=== PATIENT | female | born 1980 | race Caucasian/White ===

== ENCOUNTER 2017-03-03 13:43 | Outpatient (CLI) | payer OTHER ==
--- NOTE | 2017-03-03 14:13 | RAD ---
RADIOGRAPH CHEST 2 VIEWS: HISTORY: A 36-year-old female with disability. FINDINGS: The lungs are clear. The cardiomediastinal silhouette and hilar shadows are normal. There is no pl eural effusion. The osseous structures appear normal. There is no pneumothorax. IMPRESSION: Normal. jn [] POS: [facility]
--- NOTE | 2017-03-03 14:17 | RAD ---
LUMBAR SPINE 3 VIEWS: Date: 03/03/17 HISTORY: Disability evaluation, back pain. FINDINGS: There are mild degenerative changes, most prominent at L2-3 level. No fracture, subluxation, or bony destruction is seen. IMPRESSION: Lumbar spondylosis. POS: [facility]
== END 2017-03-03 13:44 | disposition home or self-care (01) ==
LOC: NAV RAD 13:43
PROVIDERS: ATTEND Family Medicine
DX: Z02.71 Encounter for disability determination (principal); M47.816 Spondylosis without myelopathy or radiculopathy, lumbar region
CPT/HCPCS: 71020; 72100

== ENCOUNTER 2017-09-25 22:39 | Emergency (ER) | payer OTHER ==
[2017-09-25] MEDS ORDERED: Ketorolac Tromethamine 30 MG/ML VIAL ONE (23:21)
[2017-09-25] MEDS ORDERED: Ondansetron ODT 4 MG TAB ONE (23:21)
[2017-09-25] MEDS ORDERED: HYDROcodone/Acetaminophen 10/325 mg Tablet ONE (23:22)
== END 2017-09-25 23:50 | disposition home or self-care (01) ==
LOC: NAV ERS 22:39
DX: S90.31XA Contusion of right foot, initial encounter (principal); I10 Essential (primary) hypertension; J45.909 Unspecified asthma, uncomplicated; E66.01 Morbid (severe) obesity due to excess calories; M19.90 Unspecified osteoarthritis, unspecified site; F41.9 Anxiety disorder, unspecified; F32.9 Major depressive disorder, single episode, unspecified; Z79.899 Other long term (current) drug therapy; V49.9XXA Car occupant (driver) (passenger) injured in unspecified traffic accident, initial encounter
CPT/HCPCS: 96372; J1885; Q0162

== ENCOUNTER 2018-07-06 01:41 | Emergency (ER) | payer OTHER ==
[2018-07-06 02:11] LABS: Bilirubin Moderate (Negative); Blood, Urine Large (Negative); Clarity Cloudy (Clear); Glucose, Urine (Dipstick) Negative (Negative); Leukocyte Trace (Negative); Nitrite Negative (Negative); Protein, Urine (Dipstick) 30 mg/dL (Neg-Trace); Specific Gravity, Urine 1.025 (1.005-1.030); Urobilinogen 0.2 mg/dL (0.2-1.0)
[2018-07-06 02:17] LABS: Bacteria/HPF 2+ HPF (None Seen); RBC/HPF 21-50 HPF (0-3)
[2018-07-06] MEDS ORDERED: Ondansetron ODT 4 MG TAB ONE (02:32)
[2018-07-06] MEDS ORDERED: Morphine 4 MG/ML VIAL ONE (02:32)
--- NOTE | 2018-07-06 07:58 | RAD ---
CHEST 1 VIEW AND ABDOMEN 2 VIEWS: HISTORY: Abdominal pain, gastric bypass 3 days ago. FINDINGS/IMPRESSION: The heart size is normal. The lungs are clear. No free air is seen. There is air in loops of small and large bowel. POS: [facility]
== END 2018-07-06 02:45 | disposition home or self-care (01) ==
LOC: NAV ERS 01:41
DX: G89.18 Other acute postprocedural pain (principal); R11.2 Nausea with vomiting, unspecified; I10 Essential (primary) hypertension
CPT/HCPCS: 74022; 81003; 81015; 87077; 87086; 96372; J2270; Q0162

== ENCOUNTER 2019-05-18 17:56 | Emergency (ER) | payer OTHER ==
[2019-05-18] MEDS ORDERED: Naproxen 500 MG TAB ONE (18:25)
== END 2019-05-18 18:30 | disposition home or self-care (01) ==
LOC: NAV ERS 17:56
DX: M54.5 Low back pain (principal); F32.9 Major depressive disorder, single episode, unspecified; F41.9 Anxiety disorder, unspecified; I10 Essential (primary) hypertension; J45.909 Unspecified asthma, uncomplicated; E66.01 Morbid (severe) obesity due to excess calories; M19.90 Unspecified osteoarthritis, unspecified site
CPT/HCPCS: 99283

== ENCOUNTER 2019-08-13 14:05 | Outpatient (CLI) | payer OTHER ==
--- NOTE | 2019-08-13 16:06 | ULT ---
PELVIC ULTRASOUND: INDICATIONS: PCOS (polycystic ovarian syndrome). TECHNIQUE: Transabdominal and endovaginal ultrasound of the pelvis performed. FINDINGS: The uterus has a normal size and appearance, measuring 6.7 x 4 x 3.3 cm. The endometrial stripe is normal, measured at 4 mm. Both ovaries have symmetric size, each measuring approximately 3 x 2 x 2.5 to 3 cm. Bilateral ovarian cysts are identified, measuring up to 1 cm. The ovarian cysts do not have a typical appearance of po lycystic ovarian syndrome. IMPRESSION: Unremarkable pelvic ultrasound. POS: [facility]
== END 2019-08-13 14:06 | disposition home or self-care (01) ==
LOC: NAV ULT 14:05
PROVIDERS: ATTEND Nurse Practitioner
DX: E28.2 Polycystic ovarian syndrome (principal)
CPT/HCPCS: 76856

== ENCOUNTER 2019-10-20 16:01 | Emergency (ER) | payer OTHER | END 2019-10-20 16:30 | disposition home or self-care (01) | LOC: NAV ERS 16:01 | DX: M54.5 Low back pain (principal); I10 Essential (primary) hypertension; J45.909 Unspecified asthma, uncomplicated; E66.01 Morbid (severe) obesity due to excess calories; F41.9 Anxiety disorder, unspecified; F32.9 Major depressive disorder, single episode, unspecified; Z79.899 Other long term (current) drug therapy | CPT/HCPCS: 99283 ==

== ENCOUNTER 2020-04-28 15:01 | Emergency (ER) | payer OTHER ==
--- NOTE | 2020-04-28 15:39 | RAD ---
RIGHT ANKLE 3 VIEWS: HISTORY: Injury, right ankle pain FINDINGS: Soft tissue swelling is present. The ankle mortise is maintained. No acute fracture or dislocation is identified.
--- NOTE | 2020-04-28 15:39 | RAD ---
Exam:Right tibia fibula 2 view HISTORY: Injury. Pain. COMPARISON: 09/20/2017 FINDINGS: Chronic changes involving the distal tibia. No acute fracture, cortical irregularity or per iosteal reaction. IMPRESSION: No acute fracture.
[2020-04-28] MEDS ORDERED: Ketorolac Tromethamine 30 MG/ML VIAL ONE (15:46)
[2020-04-28] MEDS ORDERED: Acetaminophen 500 MG TAB ONE (15:47)
== END 2020-04-28 16:02 | disposition home or self-care (01) ==
LOC: NAV ERS 15:01
DX: S93.401A Sprain of unspecified ligament of right ankle, initial encounter (principal); S90.31XA Contusion of right foot, initial encounter; F32.9 Major depressive disorder, single episode, unspecified; F41.9 Anxiety disorder, unspecified; I10 Essential (primary) hypertension; J45.909 Unspecified asthma, uncomplicated; M19.90 Unspecified osteoarthritis, unspecified site; W01.0XXA Fall on same level from slipping, tripping and stumbling without subsequent striking against object, initial encounter
CPT/HCPCS: 29515; 96372; J1885

== ENCOUNTER 2020-06-27 17:56 | Emergency (ER) | payer OTHER ==
[2020-06-27] MEDS ORDERED: Acetaminophen 500 MG TAB ONE (18:51)
[2020-06-27] MEDS ORDERED: Ketorolac Tromethamine 30 MG/ML VIAL ONE (18:51)
== END 2020-06-27 19:10 | disposition home or self-care (01) ==
LOC: NAV ERS 17:56
DX: M79.10 Myalgia, unspecified site (principal); M79.604 Pain in right leg; M19.90 Unspecified osteoarthritis, unspecified site; J45.909 Unspecified asthma, uncomplicated; F41.9 Anxiety disorder, unspecified; F32.9 Major depressive disorder, single episode, unspecified; Z79.899 Other long term (current) drug therapy
CPT/HCPCS: 96372; 99283; J1885

== ENCOUNTER 2020-09-18 17:13 | Emergency (ER) | payer OTHER ==
[2020-09-18] MEDS ORDERED: Acetaminophen 500 MG TAB ONE (18:03)
[2020-09-18 18:10] LABS: #Basophils 0.1 thou/uL (0.0-0.2); #Lymphocytes 1.8 thou/uL (1.20-3.40); #Monocytes 0.6 thou/uL (0.11-0.59); #Neutrophils 7.5 thou/uL (1.40-6.50); %Basophils 0.6 % (0.0-1.0); %Eosinophils 0.4 % (0.0-10.0); %Lymphocytes 18.2 % (21.0-51.0); %Monocytes 5.6 % (0.0-10.0); %Neutrophils 75.1 % (42.0-75.0); Hemoglobin 13.8 g/dL (12.0-16.0); Mean Corpuscular HGB CONC 32.9 g/dL (32.0-36.0); Mean Corpuscular Hemoglobin 28.4 pg (27.0-31.0); Mean Corpuscular Volume 86.2 fL (78.0-98.0); Mean Platelet Volume 7.1 fL (7.4-10.4); Platelet Count 225 thou/uL (130-400); RBC Distribution Width 12.7 % (11.5-14.5); Red Blood Cell (RBC) Count 4.86 mill/uL (4.20-5.40); White Blood Cell (WBC) Count 9.9 thou/uL (4.8-10.8)
[2020-09-18 18:10] LABS: Bilirubin Negative (Negative); Blood, Urine Negative (Negative); Clarity Clear (Clear); Glucose, Urine (Dipstick) Negative (Negative); Ketone, Urine Negative (Negative); Leukocyte Negative (Negative); Nitrite Negative (Negative); Protein, Urine (Dipstick) Negative (Neg-Trace); Urobilinogen 0.2 mg/dL (Less than 2)
[2020-09-18 18:13] LABS: Specific Gravity, Urine 1.027 (1.005-1.030)
[2020-09-18 18:22] LABS: ALT (SGPT) 15 U/L (8-55); AST (SGOT) 13 U/L (5-34); Albumin 3.6 g/dL (3.5-5.0); Alkaline Phosphatase 47 U/L (40-110); Anion Gap 13 mmol/L (10-20); BUN (Urea Nitrogen) 13 mg/dL (7.0-18.7); Bilirubin, Total 0.2 mg/dL (0.2-1.2); Calc. Creatinine Clearance 0 mL/min (70-130); Calcium 9.2 mg/dL (7.8-10.44); Carbon Dioxide 22 mmol/L (22-29); Chloride 104 mmol/L (98-107); Globulin 3.4 g/dL (2.4-3.5); Glucose 89 mg/dL (70-105); Potassium 3.7 mmol/L (3.5-5.1); Sodium 135 mmol/L (136-145)
[2020-09-18 19:09] LABS: SARS-CoV-2 NAA Rapid Test Not Detected (NotDetected)
== END 2020-09-18 19:15 | disposition home or self-care (01) ==
LOC: NAV ERS 17:13
DX: O09.512 Supervision of elderly primigravida, second trimester (principal); O99.891 Other specified diseases and conditions complicating pregnancy; M19.90 Unspecified osteoarthritis, unspecified site; R51.9 Headache, unspecified; Z20.822 Contact with and (suspected) exposure to COVID-19; O99.512 Diseases of the respiratory system complicating pregnancy, second trimester; J45.909 Unspecified asthma, uncomplicated; O16.2 Unspecified maternal hypertension, second trimester; Z3A.19 19 weeks gestation of pregnancy; Z79.899 Other long term (current) drug therapy
CPT/HCPCS: 0240U; 80053; 81003; 85025; 99284

== ENCOUNTER 2020-11-10 17:29 | Emergency (ER) | payer MEDICAID, OTHER, SELFPAY ==
[2020-11-10] MEDS ORDERED: Ondansetron PF 4 MG/2 ML Vial ONE (18:14)
[2020-11-10] MEDS ORDERED: Sodium Chloride 0.9% 1,000 ML ONE (18:14)
[2020-11-10 18:16] LABS: Bilirubin Small (Negative); Blood, Urine Negative (Negative); Clarity Clear (Clear); Glucose, Urine (Dipstick) Negative (Negative); Ketone, Urine Negative (Negative); Leukocyte Negative (Negative); Nitrite Negative (Negative); Protein, Urine (Dipstick) Negative (Neg-Trace); Specific Gravity, Urine Greater/Equal 1.030 (1.005-1.030); Urobilinogen 0.2 mg/dL (Less than 2)
[2020-11-10 18:33] LABS: #Basophils 0.1 thou/uL (0.0-0.2); #Eosinphils 0.1 thou/uL (0.0-0.7); #Lymphocytes 1.8 thou/uL (1.20-3.40); #Monocytes 0.8 thou/uL (0.11-0.59); #Neutrophils 9.2 thou/uL (1.40-6.50); %Eosinophils 0.5 % (0.0-10.0); %Lymphocytes 15.2 % (21.0-51.0); %Monocytes 6.3 % (0.0-10.0); %Neutrophils 76.9 % (42.0-75.0); ALT (SGPT) 17 U/L (8-55); AST (SGOT) 18 U/L (5-34); Albumin 3.4 g/dL (3.5-5.0); Alkaline Phosphatase 59 U/L (40-110); Anion Gap 13 mmol/L (10-20); BUN (Urea Nitrogen) 13 mg/dL (7.0-18.7); Bilirubin, Total 0.3 mg/dL (0.2-1.2); Calc. Creatinine Clearance 0 mL/min (70-130); Calcium 8.8 mg/dL (7.8-10.44); Carbon Dioxide 20 mmol/L (22-29); Chloride 105 mmol/L (98-107); Globulin 3.3 g/dL (2.4-3.5); Glucose 97 mg/dL (70-105); Hemoglobin 12.4 g/dL (12.0-16.0); Lipase 36 U/L (8-78); Mean Corpuscular HGB CONC 32.2 g/dL (32.0-36.0); Mean Corpuscular Hemoglobin 29.1 pg (27.0-31.0); Mean Corpuscular Volume 90.6 fL (78.0-98.0); Mean Platelet Volume 8.2 fL (7.4-10.4); Platelet Count 237 thou/uL (130-400); Potassium 3.9 mmol/L (3.5-5.1); Protein, Total 6.7 g/dL (6.0-8.3); RBC Distribution Width 12.5 % (11.5-14.5); Red Blood Cell (RBC) Count 4.24 mill/uL (4.20-5.40); Sodium 134 mmol/L (136-145); White Blood Cell (WBC) Count 11.9 thou/uL (4.8-10.8)
== END 2020-11-10 19:45 | disposition home or self-care (01) ==
LOC: NAV ERS 17:29
DX: O21.2 Late vomiting of pregnancy (principal); Z3A.26 26 weeks gestation of pregnancy
CPT/HCPCS: 80053; 81003; 83690; 85025; 96374; J2405; J7050

== ENCOUNTER 2021-01-06 20:13 | Emergency (ER) | payer OTHER, SELFPAY ==
[2021-01-06 20:53] LABS: #Basophils 0.1 thou/uL (0.0-0.2); #Eosinphils 0.1 thou/uL (0.0-0.7); #Lymphocytes 2.1 thou/uL (1.20-3.40); #Monocytes 0.9 thou/uL (0.11-0.59); %Basophils 0.5 % (0.0-1.0); %Eosinophils 0.9 % (0.0-10.0); %Lymphocytes 16.1 % (21.0-51.0); %Monocytes 6.6 % (0.0-10.0); %Neutrophils 75.9 % (42.0-75.0); Mean Corpuscular Volume 87.6 fL (78.0-98.0); Mean Platelet Volume 8.5 fL (7.4-10.4); Platelet Count 278 thou/uL (130-400); White Blood Cell (WBC) Count 13.1 thou/uL (4.8-10.8)
[2021-01-06] MEDS ORDERED: Acetaminophen 500 MG TAB ONE (21:00)
[2021-01-06] MEDS ORDERED: Sodium Chloride 0.9% 1,000 ML ONE (21:00)
[2021-01-06] MEDS ORDERED: Ondansetron PF 4 MG/2 ML Vial ONE (21:00)
[2021-01-06 21:06] LABS: ALT (SGPT) 20 U/L (8-55); AST (SGOT) 16 U/L (5-34); Alkaline Phosphatase 83 U/L (40-110); Anion Gap 15 mmol/L (10-20); BUN (Urea Nitrogen) 10 mg/dL (7.0-18.7); Bilirubin, Total 0.2 mg/dL (0.2-1.2); Calc. Creatinine Clearance 0 mL/min (70-130); Calcium 8.2 mg/dL (7.8-10.44); Carbon Dioxide 16 mmol/L (22-29); Chloride 106 mmol/L (98-107); Globulin 3.5 g/dL (2.4-3.5); Glucose 145 mg/dL (70-105); Potassium 3.8 mmol/L (3.5-5.1); Protein, Total 6.5 g/dL (6.0-8.3); Sodium 133 mmol/L (136-145)
[2021-01-06 21:19] LABS: Bilirubin Small (Negative); Blood, Urine Negative (Negative); Clarity Clear (Clear); Glucose, Urine (Dipstick) Negative (Negative); Ketone, Urine Negative (Negative); Leukocyte Negative (Negative); Nitrite Negative (Negative); Protein, Urine (Dipstick) 30 mg/dL (Neg-Trace); Specific Gravity, Urine 1.026 (1.002-1.036); Urobilinogen 0.2 mg/dL (Less than 2)
[2021-01-06 21:22] LABS: Bacteria/HPF Rare-Few HPF (None Seen); Mucous/LPF Rare LPF (<2+); RBC/HPF 0-3 HPF (0-3); Squamous Epithelial 0-3 HPF (0-3); WBC/HPF 0-3 HPF (0-3)
== END 2021-01-06 21:55 | disposition home or self-care (01) ==
LOC: NAV ERS 20:13
DX: O99.891 Other specified diseases and conditions complicating pregnancy (principal); E86.0 Dehydration; O99.513 Diseases of the respiratory system complicating pregnancy, third trimester; J45.909 Unspecified asthma, uncomplicated; Z79.899 Other long term (current) drug therapy
CPT/HCPCS: 36415; 80053; 81003; 81015; 85025; 93005; 96374; J2405; J7050

== ENCOUNTER 2021-02-16 21:17 | Emergency (ER) | payer OTHER ==
[2021-02-16 21:44] LABS: Bilirubin Negative (Negative); Blood, Urine Negative (Negative); Glucose, Urine (Dipstick) Negative (Negative); Ketone, Urine Trace mg/dL (Negative); Leukocyte Negative (Negative); Nitrite Negative (Negative); Protein, Urine (Dipstick) Negative (Neg-Trace); Specific Gravity, Urine 1.025 (1.005-1.030); Urobilinogen 0.2 mg/dL (Less than 2)
[2021-02-16 21:45] LABS: Clarity Clear (Clear)
[2021-02-16] MEDS ORDERED: Sodium Chloride 0.9% 1,000 ML ONE (21:48)
[2021-02-16] MEDS ORDERED: Ondansetron PF 4 MG/2 ML Vial ONE (21:48)
== END 2021-02-16 23:25 | disposition home or self-care (01) ==
LOC: NAV ERS 21:17
DX: O21.2 Late vomiting of pregnancy (principal); Z3A.38 38 weeks gestation of pregnancy; O99.513 Diseases of the respiratory system complicating pregnancy, third trimester; J45.909 Unspecified asthma, uncomplicated; Z79.899 Other long term (current) drug therapy
CPT/HCPCS: 81003; 96374; J2405; J7050

== ENCOUNTER 2021-06-11 14:04 | Emergency (ER) | payer OTHER ==
[2021-06-11] MEDS ORDERED: Ketorolac Tromethamine 30 MG/ML VIAL ONE (14:37)
[2021-06-11] MEDS ORDERED: Sodium Chloride 0.9% 1,000 ML ONE ×2 (14:37→15:43)
[2021-06-11] MEDS ORDERED: Ondansetron PF 4 MG/2 ML Vial ONE (14:37)
[2021-06-11 15:03] LABS: #Lymphocytes 0.5 thou/uL (1.20-3.40); #Monocytes 0.2 thou/uL (0.11-0.59); #Neutrophils 6.3 thou/uL (1.40-6.50); %Basophils 0.6 % (0.0-1.0); %Eosinophils 0.7 % (0.0-10.0); %Lymphocytes 6.6 % (21.0-51.0); %Monocytes 2.9 % (0.0-10.0); %Neutrophils 89.3 % (42.0-75.0); Hemoglobin 13.7 g/dL (12.0-16.0); Mean Corpuscular HGB CONC 30.7 g/dL (32.0-36.0); Mean Corpuscular Hemoglobin 25.6 pg (27.0-31.0); Mean Corpuscular Volume 83.3 fL (78.0-98.0); Mean Platelet Volume 6.6 fL (7.4-10.4); Platelet Count 259 thou/uL (130-400); RBC Distribution Width 14.7 % (11.5-14.5); Red Blood Cell (RBC) Count 5.36 mill/uL (4.20-5.40); White Blood Cell (WBC) Count 7.1 thou/uL (4.8-10.8)
[2021-06-11 15:14] LABS: BHCG - Serum Negative (NEGATIVE); Pregs Control Bar Appear? YES (CONTROL BAR)
[2021-06-11 15:22] LABS: Anion Gap 11 mmol/L (10-20); BUN (Urea Nitrogen) 16 mg/dL (7.0-18.7); Calc. Creatinine Clearance 0 mL/min (70-130); Calcium 8.9 mg/dL (7.8-10.44); Carbon Dioxide 23 mmol/L (22-29); Chloride 105 mmol/L (98-107); Glucose 103 mg/dL (70-105); Sodium 135 mmol/L (136-145)
== END 2021-06-11 16:50 | disposition home or self-care (01) ==
LOC: NAV ERS 14:04
DX: K52.9 Noninfective gastroenteritis and colitis, unspecified (principal); N94.6 Dysmenorrhea, unspecified; N28.9 Disorder of kidney and ureter, unspecified; J45.909 Unspecified asthma, uncomplicated; Z79.899 Other long term (current) drug therapy
CPT/HCPCS: 74019; 80048; 84703; 85025; 96374; 96375; J1885; J2405; J7050

== ENCOUNTER 2021-07-25 19:13 | Emergency (ER) | payer OTHER ==
[2021-07-25] MEDS ORDERED: Ketorolac Tromethamine 60 MG/2 ML VIAL ONE (20:06)
== END 2021-07-25 20:12 | disposition home or self-care (01) ==
LOC: NAV ERS 19:13
DX: M54.50 Low back pain, unspecified (principal); M25.562 Pain in left knee; J45.909 Unspecified asthma, uncomplicated
CPT/HCPCS: 96372; 99283; J1885

== ENCOUNTER 2021-08-25 13:52 | Emergency (ER) | payer OTHER | END 2021-08-25 14:34 | disposition home or self-care (01) | LOC: NAV ERS 13:52 | DX: U07.1 COVID-19 (principal); E86.0 Dehydration; J45.909 Unspecified asthma, uncomplicated; Z79.899 Other long term (current) drug therapy | CPT/HCPCS: 99284 ==

== ENCOUNTER 2021-10-01 15:52 | Outpatient (CLI) | payer OTHER | END 2021-10-01 15:53 | disposition home or self-care (01) | LOC: NAV RAD 15:52 | DX: Z02.71 Encounter for disability determination (principal); M54.50 Low back pain, unspecified; M25.561 Pain in right knee; M25.562 Pain in left knee; M47.816 Spondylosis without myelopathy or radiculopathy, lumbar region; K59.00 Constipation, unspecified; M25.761 Osteophyte, right knee; M17.12 Unilateral primary osteoarthritis, left knee | CPT/HCPCS: 72100 ==

== ENCOUNTER 2021-10-11 09:09 | Emergency (ER) | payer OTHER ==
[2021-10-11] MEDS ORDERED: Acetaminophen 500 MG TAB ONE (10:16)
[2021-10-11 10:24] LABS: Bilirubin Negative (Negative); Blood, Urine Moderate (Negative); Clarity Clear (Clear); Glucose, Urine (Dipstick) Negative (Negative); Ketone, Urine Negative (Negative); Leukocyte Negative (Negative); Nitrite Negative (Negative); Protein, Urine (Dipstick) Negative (Neg-Trace); Urobilinogen 0.2 mg/dL (Less than 2)
[2021-10-11 10:25] LABS: Pregnancy Test - Urine (BHCG) Negative (Negative); Specific Gravity, Urine 1.026 (1.002-1.036)
[2021-10-11 10:26] LABS: Pregu Control Background? CLEAR/WHITE (CLR/WHITE); Pregu Control Bar Appear? YES (CONTROL BAR); Specific Gravity 1.026 (1.002-1.036)
[2021-10-11 10:28] LABS: Squamous Epithelial 0-3 HPF (0-3); WBC/HPF 0-3 HPF (0-3)
== END 2021-10-11 11:10 | disposition home or self-care (01) ==
LOC: NAV ERS 09:09
DX: S39.012A Strain of muscle, fascia and tendon of lower back, initial encounter (principal); N94.6 Dysmenorrhea, unspecified; J45.909 Unspecified asthma, uncomplicated; Z79.899 Other long term (current) drug therapy; Y04.0XXA Assault by unarmed brawl or fight, initial encounter
CPT/HCPCS: 81003; 81015; 81025; 99283

== ENCOUNTER 2022-02-09 17:49 | Emergency (ER) | payer OTHER ==
[2022-02-09 18:11] LABS: Pregnancy Test - Urine (BHCG) POSITIVE (Negative); Pregu Control Background? CLEAR/WHITE (CLR/WHITE); Pregu Control Bar Appear? YES (CONTROL BAR); Specific Gravity 1.032 (1.002-1.036)
[2022-02-09] MEDS ORDERED: Ondansetron PF 4 MG/2 ML Vial ONE (18:16)
[2022-02-09] MEDS ORDERED: Sodium Chloride 0.9% 1,000 ML ONE (18:16)
[2022-02-09 18:50] LABS: Anion Gap 13 mmol/L (10-20); BUN (Urea Nitrogen) 11 mg/dL (7.0-18.7); Calc. Creatinine Clearance 0 mL/min (70-130); Calcium 8.7 mg/dL (7.8-10.44); Carbon Dioxide 21 mmol/L (22-29); Chloride 107 mmol/L (98-107); Estimated GFR 77; Glucose 62 mg/dL (70-105); Potassium 3.8 mmol/L (3.5-5.1); Sodium 137 mmol/L (136-145)
== END 2022-02-09 19:25 | disposition home or self-care (01) ==
LOC: NAV ERS 17:49
DX: O21.9 Vomiting of pregnancy, unspecified (principal)
CPT/HCPCS: 80048; 81025; 96361; 96374; J2405; J7050

== ENCOUNTER 2022-04-29 16:14 | Outpatient (CLI) | payer OTHER | END 2022-04-29 16:15 | disposition home or self-care (01) | LOC: NAV RAD 16:14 | PROVIDERS: ATTEND Nurse Practitioner Family | DX: M25.561 Pain in right knee (principal); M25.562 Pain in left knee; M17.0 Bilateral primary osteoarthritis of knee ==

== ENCOUNTER 2022-09-18 13:18 | Emergency (ER) | payer OTHER | END 2022-09-18 14:04 | disposition home or self-care (01) | LOC: NAV ERS 13:18 | DX: K64.4 Residual hemorrhoidal skin tags (principal); K59.00 Constipation, unspecified; I10 Essential (primary) hypertension; K21.9 Gastro-esophageal reflux disease without esophagitis; M19.90 Unspecified osteoarthritis, unspecified site; Z79.899 Other long term (current) drug therapy | CPT/HCPCS: 99283 ==

== ENCOUNTER 2022-11-30 17:05 | Emergency (ER) | payer OTHER ==
[2022-11-30] MEDS ORDERED: Cyclobenzaprine 10 MG TAB ONE (17:35)
== END 2022-11-30 17:55 | disposition home or self-care (01) ==
LOC: NAV ERS 17:05
DX: M54.50 Low back pain, unspecified (principal); G89.29 Other chronic pain; I10 Essential (primary) hypertension; K21.9 Gastro-esophageal reflux disease without esophagitis; J45.909 Unspecified asthma, uncomplicated; Z79.899 Other long term (current) drug therapy
CPT/HCPCS: 99283

== ENCOUNTER 2023-03-24 22:56 | Emergency (ER) | payer OTHER | END 2023-03-24 23:35 | disposition home or self-care (01) | LOC: NAV ERS 22:56 | DX: M54.9 Dorsalgia, unspecified (principal); G89.29 Other chronic pain; M15.9 Polyosteoarthritis, unspecified; I10 Essential (primary) hypertension; K21.9 Gastro-esophageal reflux disease without esophagitis; Z79.899 Other long term (current) drug therapy | CPT/HCPCS: 99283 ==

== ENCOUNTER 2023-07-21 14:27 | Outpatient (CLI) | payer OTHER | END 2023-07-21 14:28 | disposition home or self-care (01) | LOC: NAV RAD 14:27 | PROVIDERS: ATTEND Nurse Practitioner Family | DX: M17.11 Unilateral primary osteoarthritis, right knee (principal); M54.50 Low back pain, unspecified; M47.816 Spondylosis without myelopathy or radiculopathy, lumbar region | CPT/HCPCS: 72100 ==

== ENCOUNTER 2025-04-08 17:32 | Emergency (ER) | payer OTHER ==
[~2025-04-08 17:32] MED LIST: Iopamidol 370 76% 100 ML VIAL ONE
[2025-04-08] MEDS ORDERED: Ondansetron PF 4 MG/2 ML Vial ONE (17:51)
[2025-04-08] MEDS ORDERED: Famotidine/PF 20 mg/2ml Vial ONE (17:52)
[2025-04-08 18:13] LABS: #Basophils 0.1 thou/uL (0.0-0.2); #Eosinophils 0.1 thou/uL (0.0-0.7); #Lymphocytes 1.1 thou/uL (1.20-3.40); #Monocytes 0.6 thou/uL (0.11-0.59); #Neutrophils 9.0 thou/uL (1.40-6.50); %Basophils 0.8 % (0.0-1.0); %Eosinophils 0.9 % (0.0-10.0); %Lymphocytes 10.2 % (21.0-51.0); %Monocytes 5.1 % (0.0-10.0); %Neutrophils 83.0 % (42.0-75.0); Hematocrit 31.7 % (36.0-47.0); Hemoglobin 10.2 g/dL (12.0-16.0); Mean Corpuscular Hemoglobin 25.2 pg (27.0-31.0); Mean Corpuscular Volume 78.4 fl (78.0-98.0); Platelet Count 518 10x3/uL (130-400); Red Blood Cell (RBC) Count 4.05 mill/uL (4.20-5.40); White Blood Cell (WBC) Count 10.8 10x3/uL (4.8-10.8)
[2025-04-08] MEDS ORDERED: Mag-Al Plus 1200/1200/120 MG (30 mL) UDCUP ONE (18:13)
[2025-04-08] MEDS ORDERED: Lidocaine Viscous Sol 2% 15 ml UD Cup ONE (18:13)
[2025-04-08 18:20] LABS: ALT (SGPT) 8 U/L (Less than 34); AST (SGOT) 19 U/L (11-34); Albumin 2.3 g/dL (3.1-4.5); Alkaline Phosphatase 163 U/L (40-110); Anion Gap 15 mmol/L (10-20); BUN (Urea Nitrogen) 12 mg/dL (7.0-18.7); Bilirubin, Total 0.2 mg/dL (0.3-1.2); Calc. Creatinine Clearance 0 mL/min (70-130); Calcium 8.7 mg/dL (7.8-10.44); Carbon Dioxide 24 mmol/L (22-29); Chloride 102 mmol/L (98-107); Globulin 3.9 g/dL (2.4-3.5); Glucose 90 mg/dL (70-105); Lipase 6 U/L (8-78); Potassium 4.2 mmol/L (3.5-5.1); Sodium 137 mmol/L (136-145)
[2025-04-08 18:36] LABS: Glucose, Urine (Dipstick) Negative (Negative); Leukocyte Negative (Negative); Protein, Urine (Dipstick) 30 mg/dL (Neg-Trace); Specific Gravity, Urine Greater/Equal 1.030 (1.005-1.030)
[2025-04-08 19:04] LABS: CAUTI Indications for Culture Pelvic or flank pain; RBC/HPF 0-3 HPF (0-3)
[2025-04-08 19:05] LABS: Bacteria/HPF 2+ HPF (None Seen); Mucous/LPF 3+ LPF (<2+); Yeast-Budding Rare HPF (None Seen)
[2025-04-08 19:06] LABS: Urine Culture Reflex No No
[2025-04-08] MEDS ORDERED: Sucralfate 1 GM TAB ONE (19:24)
== END 2025-04-08 19:40 | disposition home or self-care (01) ==
LOC: NAV ERS 17:32
DX: K44.9 Diaphragmatic hernia without obstruction or gangrene (principal); R11.2 Nausea with vomiting, unspecified; K21.9 Gastro-esophageal reflux disease without esophagitis; I10 Essential (primary) hypertension; Z79.899 Other long term (current) drug therapy
CPT/HCPCS: 74177; 80053; 81001; 83690; 85025; 96361; 96374; 96375; J1308; J2405; J7030; Q9967

== ENCOUNTER 2025-05-30 17:45 | Emergency (ER) | payer OTHER ==
[2025-05-30] MEDS ORDERED: Ondansetron PF 4 MG/2 ML Vial ONE (18:26)
[2025-05-30 18:37] LABS: #Basophils 0.1 thou/uL (0.0-0.2); #Eosinophils 0.0 thou/uL (0.0-0.7); #Lymphocytes 2.1 thou/uL (1.20-3.40); #Monocytes 0.6 thou/uL (0.11-0.59); #Neutrophils 4.6 thou/uL (1.40-6.50); %Basophils 1.5 % (0.0-1.0); %Eosinophils 0.6 % (0.0-10.0); %Lymphocytes 28.0 % (21.0-51.0); %Monocytes 7.8 % (0.0-10.0); %Neutrophils 62.0 % (42.0-75.0); Hematocrit 46.5 % (36.0-47.0); Hemoglobin 15.5 g/dL (12.0-16.0); Mean Corpuscular Hemoglobin 25.7 pg (27.0-31.0); Mean Corpuscular Volume 77.1 fl (78.0-98.0); Platelet Count 358 10x3/uL (130-400); Red Blood Cell (RBC) Count 6.03 mill/uL (4.20-5.40); White Blood Cell (WBC) Count 7.4 10x3/uL (4.8-10.8)
[2025-05-30 18:42] LABS: Glucose, Urine (Dipstick) Negative (Negative); Leukocyte Negative (Negative); Protein, Urine (Dipstick) 100 mg/dL (Neg-Trace); Specific Gravity, Urine Greater/Equal 1.030 (1.005-1.030)
[2025-05-30 18:49] LABS: ALT (SGPT) 14 U/L (Less than 34); AST (SGOT) 27 U/L (11-34); Albumin 4.1 g/dL (3.1-4.5); Alkaline Phosphatase 108 U/L (40-110); Anion Gap 23 mmol/L (10-20); BUN (Urea Nitrogen) 9 mg/dL (7.0-18.7); Bilirubin, Total 0.6 mg/dL (0.3-1.2); Calc. Creatinine Clearance 0 mL/min (70-130); Calcium 9.6 mg/dL (7.8-10.44); Carbon Dioxide 21 mmol/L (22-29); Chloride 100 mmol/L (98-107); Globulin 4.0 g/dL (2.4-3.5); Glucose 85 mg/dL (70-105); Lipase 20 U/L (8-78); Potassium 3.7 mmol/L (3.5-5.1); Sodium 140 mmol/L (136-145)
[2025-05-30] MEDS ORDERED: Mag-Al Plus 1200/1200/120 MG (30 mL) UDCUP ONE (18:51)
[2025-05-30] MEDS ORDERED: Lidocaine Viscous Sol 2% 15 ml UD Cup ONE (18:51)
[2025-05-30 18:59] LABS: Bacteria/HPF 1+ HPF (None Seen); CAUTI Indications for Culture Dysuria,urgency,freq; Mucous/LPF 3+ LPF (<2+); RBC/HPF 0-3 HPF (0-3); WBC/HPF 0-3 HPF (0-3)
[2025-05-30 19:00] LABS: Urine Culture Reflex No No
[2025-05-30] MEDS ORDERED: Metoclopramide HCl 10 MG (2 mL) VIAL ONE (19:21)
[2025-05-30] MEDS ORDERED: Ketorolac Tromethamine 30 MG (1 mL) VIAL ONE (19:21)
[2025-05-30] MEDS ORDERED: diphenhydrAMINE 50 MG/ML VIAL ONE ×2 (19:21→20:30)
[2025-05-30] MEDS ORDERED: Pantoprazole 40 MG VIAL ONE (20:07)
== END 2025-05-30 21:25 | disposition home or self-care (01) ==
LOC: NAV ERS 17:45
DX: E86.0 Dehydration (principal); R11.2 Nausea with vomiting, unspecified; I10 Essential (primary) hypertension
CPT/HCPCS: 80053; 81001; 83690; 85025; 96361; 96365; 96375; 96376; J1200; J1885; J2405; J2470; J2765; J7030

== ENCOUNTER 2025-06-20 16:13 | Emergency (ER) | payer OTHER ==
[2025-06-20] MEDS ORDERED: Ondansetron PF 4 MG/2 ML Vial ONE ×2 (16:50→19:39)
[2025-06-20 17:03] LABS: #Basophils 0.1 thou/uL (0.0-0.2); #Eosinophils 0.1 thou/uL (0.0-0.7); #Lymphocytes 1.4 thou/uL (1.20-3.40); #Monocytes 0.4 thou/uL (0.11-0.59); #Neutrophils 8.2 thou/uL (1.40-6.50); %Basophils 0.5 % (0.0-1.0); %Eosinophils 0.5 % (0.0-10.0); %Lymphocytes 14.2 % (21.0-51.0); %Monocytes 4.2 % (0.0-10.0); %Neutrophils 80.6 % (42.0-75.0); Hematocrit 47.6 % (36.0-47.0); Hemoglobin 14.8 g/dL (12.0-16.0); Mean Corpuscular Hemoglobin 26.2 pg (27.0-31.0); Mean Corpuscular Volume 84.6 fl (78.0-98.0); Platelet Count 290 10x3/uL (130-400); Red Blood Cell (RBC) Count 5.63 mill/uL (4.20-5.40); White Blood Cell (WBC) Count 10.2 10x3/uL (4.8-10.8)
[2025-06-20 17:18] LABS: ALT (SGPT) 16 U/L (Less than 34); AST (SGOT) 30 U/L (11-34); Albumin 3.5 g/dL (3.1-4.5); Alkaline Phosphatase 92 U/L (40-110); Anion Gap 19 mmol/L (10-20); BUN (Urea Nitrogen) 13 mg/dL (7.0-18.7); Bilirubin, Total 0.8 mg/dL (0.3-1.2); Calc. Creatinine Clearance 0 mL/min (70-130); Calcium 9.2 mg/dL (7.8-10.44); Carbon Dioxide 23 mmol/L (22-29); Chloride 100 mmol/L (98-107); Globulin 3.9 g/dL (2.4-3.5); Glucose 90 mg/dL (70-105); Lipase 19 U/L (8-78); Potassium 3.3 mmol/L (3.5-5.1); Sodium 139 mmol/L (136-145)
[2025-06-20] MEDS ORDERED: Pantoprazole 40 MG VIAL ONE (18:00)
[2025-06-20 19:38] LABS: Glucose, Urine (Dipstick) Negative (Negative); Leukocyte Negative (Negative); Protein, Urine (Dipstick) 100 mg/dL (Neg-Trace); Specific Gravity, Urine Greater/Equal 1.030 (1.005-1.030)
[2025-06-20] MEDS ORDERED: Lidocaine Viscous Sol 2% 15 ml UD Cup ONE (19:39)
[2025-06-20] MEDS ORDERED: Mag-Al Plus 1200/1200/120 MG (30 mL) UDCUP ONE (19:39)
[2025-06-20 19:45] LABS: CAUTI Indications for Culture Fever or rigors; Mucous/LPF 4+ LPF (<2+); Pregnancy Test - Urine (BHCG) Negative (Negative); Pregu Control Background? CLEAR/WHITE (CLR/WHITE); Pregu Control Bar Appear? YES (CONTROL BAR); RBC/HPF 0-3 HPF (0-3); WBC/HPF 0-3 HPF (0-3)
[2025-06-20 19:46] LABS: Urine Culture Reflex No No
== END 2025-06-20 19:59 | disposition short-term general hospital (02) ==
LOC: NAV ERS 16:13
DX: R11.2 Nausea with vomiting, unspecified (principal); I10 Essential (primary) hypertension; Z79.899 Other long term (current) drug therapy
CPT/HCPCS: 36416; 80053; 81001; 81025; 83690; 85025; 93005; 96374; 96375; 96376; J2270; J2405; J2470

== ENCOUNTER 2025-07-18 14:44 | Emergency (ER) | payer OTHER, SELFPAY ==
[2025-07-18] MEDS ORDERED: Metoprolol Tartrate 5 MG (5 mL) VIAL ONE (15:42)
[2025-07-18] MEDS ORDERED: Famotidine/PF 20 mg/2ml Vial ONE (15:43)
[2025-07-18 15:50] LABS: #Basophils 0.0 thou/uL (0.0-0.2); #Eosinophils 0.1 thou/uL (0.0-0.7); #Lymphocytes 0.6 thou/uL (1.20-3.40); #Monocytes 0.0 thou/uL (0.11-0.59); #Neutrophils 3.3 thou/uL (1.40-6.50); %Basophils 0.0 % (0.0-1.0); %Eosinophils 1.6 % (0.0-10.0); %Lymphocytes 15.8 % (21.0-51.0); %Monocytes 0.5 % (0.0-10.0); %Neutrophils 82.1 % (42.0-75.0); Hematocrit 42.4 % (36.0-47.0); Hemoglobin 14.1 g/dL (12.0-16.0); Mean Corpuscular Hemoglobin 27.0 pg (27.0-31.0); Mean Corpuscular Volume 81.2 fl (78.0-98.0); Platelet Count 381 10x3/uL (130-400); Red Blood Cell (RBC) Count 5.23 mill/uL (4.20-5.40); White Blood Cell (WBC) Count 4.0 10x3/uL (4.8-10.8)
[2025-07-18 16:06] LABS: ALT (SGPT) 8 U/L (Less than 34); AST (SGOT) 20 U/L (11-34); Albumin 2.8 g/dL (3.1-4.5); Alkaline Phosphatase 110 U/L (40-110); Anion Gap 14 mmol/L (10-20); BUN (Urea Nitrogen) 8 mg/dL (7.0-18.7); Bilirubin, Total 0.3 mg/dL (0.3-1.2); Calc. Creatinine Clearance 0 mL/min (70-130); Calcium 9.1 mg/dL (7.8-10.44); Carbon Dioxide 27 mmol/L (22-29); Chloride 103 mmol/L (98-107); Globulin 3.5 g/dL (2.4-3.5); Glucose 90 mg/dL (70-105); Lipase 17 U/L (8-78); Potassium 3.0 mmol/L (3.5-5.1); Sodium 141 mmol/L (136-145)
[2025-07-18] MEDS ORDERED: Metoclopramide HCl 10 MG (2 mL) VIAL ONE (16:22)
== END 2025-07-18 18:35 | disposition home or self-care (01) ==
LOC: NAV ERS 14:44
DX: R11.2 Nausea with vomiting, unspecified (principal); I10 Essential (primary) hypertension
CPT/HCPCS: 74022; 80053; 83690; 85025; 96374; 96375; J1308; J2765